=== PATIENT | female | born 1980 | race Caucasian/White ===

== ENCOUNTER 2017-08-28 11:50 | Inpatient (IN) ==
[2017-08-28] MEDS ORDERED: DEXTROSE 50% 25 GM/50 ML VIAL IV PRN ×2 (11:52→11:55)
[2017-08-28] MEDS ORDERED: GLUCAGON 1 MG VIAL IM PRN ×2 (11:52→11:55)
[2017-08-28 13:29] LABS: Basophils % 0.1 % (0.0-0.8); Eosinophils % 0.1 % (0.00-10.9); Hematocrit 37.6 VOL% (35.7-47.0); Hemoglobin 12.2 GM/DL (12.0-16.0); Immature Granulocytes % 0.5 %; Immature Granulocytes Absolute 0.08 #; Lymphocytes # 1.7 10*3/uL (1.4-4.0); Lymphocytes % 10.5 % (21.3-54.2); Mean Corpuscular HGB Conc 32.4 GM/DL (32-36); Mean Corpuscular Hemoglobin 28 PG (27-34); Mean Platelet Volume 9.8 FL (9.6-12.0); Monocytes % 6.6 % (1.7-12.7); Neutrophils % 82.2 % (38.7-73.9); Platelet Count 334 T/CUMM (130-400); Red Blood Count 4.32 MC/CUMM (3.8-5.5); Red Cell Distribution Width 14.1 % (9.3-17.3); White Blood Count 15.8 T/CUMM (4-12)
[2017-08-28] MEDS: ONDANSETRON 4 MG/2 ML VIAL IV PRN ×2 (13:36→19:35)
[2017-08-28] MEDS: MORPHINE 2 MG/1 ML SYRINGE IV PRN ×3 (13:36→23:16)
[2017-08-28 14:03] LABS: Albumin 3.6 G/DL (3.4-5.0); Bilirubin,Total 0.7 MG/DL (0.2-1.0); Calcium 9.2 MG/DL (8.5-10.1); Osmolality,Calculated 278.4 MOS/KG (273-304); Total Protein 7.5 G/DL (6.4-8.3)
[2017-08-28 15:11] LABS: Apearance,Urine CLEAR (Clear); Bilirubin,Urine Negative (Negative); Blood, Urine Small mg/dL (Negative); Glucose,Urine (UA) >=500 mg/dL (Negative); Ketones,Urine 80 mg/dL (Negative); Mucus,Urine Occasional /LPF (Occasional); Nitrite,Urine Negative (Negative); Protein,Urine Negative; RBC,Urine <1 /HPF (0-4); Squamous Epithelial Cell,Urine Occasional /HPF (0-10); Urine Color Yellow (Yellow); Urine Specific Gravity 1.031 (1.001-1.035); Urine Urobilinogen < 2.0 EU/DL (0.2-1.0); WBC,Urine 10 /HPF (0-6)
[2017-08-28] MEDS: INSULIN LISPRO 100 UNIT/ML SUBCUT SCH ×3 (16:05→21:50)
[2017-08-28] MEDS: SODIUM CHLORIDE 0.9% 1,000 ML IV SCH ×3 (16:07→21:54)
[2017-08-28] MEDS: CEFTAROLINE 600 MG in SODIUM CHLORIDE 0.9% 50 ML IV SCH (18:30)
[2017-08-28] MEDS: DOCUSATE SODIUM 100 MG CAPSULE PO SCH (21:49)
[2017-08-29] MEDS: INSULIN LISPRO 100 UNIT/ML SUBCUT SCH ×6 (01:14→22:19)
[2017-08-29] MEDS: CEFTAROLINE 600 MG in SODIUM CHLORIDE 0.9% 50 ML IV SCH ×2 (01:14→15:14)
[2017-08-29] MEDS: SODIUM CHLORIDE 0.9% 1,000 ML IV SCH ×5 (02:29→20:24)
[2017-08-29 03:45] LABS: Basophils % 0.1 % (0.0-0.8); Eosinophils # 0.1 10*3/uL (0.0-0.87); Eosinophils % 0.8 % (0.00-10.9); Hematocrit 29.6 VOL% (35.7-47.0); Hemoglobin 9.8 GM/DL (12.0-16.0); Immature Granulocytes % 0.4 %; Immature Granulocytes Absolute 0.06 #; Lymphocytes # 2.4 10*3/uL (1.4-4.0); Lymphocytes % 17.4 % (21.3-54.2); Mean Corpuscular HGB Conc 33.1 GM/DL (32-36); Mean Corpuscular Hemoglobin 28 PG (27-34); Mean Corpuscular Volume 85.1 FL (87-102); Monocytes # 0.8 10*3/uL (0.11-0.8); Neutrophils # 10.4 10*3/uL (1.4-7.4); Neutrophils % 75.3 % (38.7-73.9); Platelet Count 272 T/CUMM (130-400); Red Blood Count 3.48 MC/CUMM (3.8-5.5); Red Cell Distribution Width 14.2 % (9.3-17.3); White Blood Count 13.8 T/CUMM (4-12)
[2017-08-29 04:26] LABS: Osmolality,Calculated 273.1 MOS/KG (273-304); Potassium 3.9 MMOL/L (3.5-5.1)
[2017-08-29] MEDS: MORPHINE 2 MG/1 ML SYRINGE IV PRN (05:59)
[2017-08-29] MEDS: ONDANSETRON 4 MG/2 ML VIAL IV PRN (06:03)
[2017-08-29] MEDS ORDERED: ZALEPLON 5 MG CAPSULE PO PRN (09:10)
[2017-08-29] MEDS ORDERED: ONDANSETRON 4 MG TABLET PO PRN (09:40)
[2017-08-29] MEDS: DOCUSATE SODIUM 100 MG CAPSULE PO SCH ×2 (09:59→22:10)
[2017-08-29] MEDS: PANTOPRAZOLE 40 MG TABLET PO SCH (09:59)
[2017-08-29] MEDS: BENZONATATE 100 MG CAPSULE PO SCH ×2 (15:11→22:10)
[2017-08-29] MEDS: SERTRALINE 50 MG TABLET PO SCH (22:10)
[2017-08-29] MEDS: CETIRIZINE 10 MG TABLET PO SCH (22:11)
[2017-08-29] MEDS: INSULIN GLARGINE 100 UNIT/ML SUBCUT SCH (22:20)
[2017-08-30] MEDS: CEFTAROLINE 600 MG in SODIUM CHLORIDE 0.9% 50 ML IV SCH ×2 (02:17→15:33)
[2017-08-30] MEDS: INSULIN LISPRO 100 UNIT/ML SUBCUT SCH ×6 (02:20→23:08)
[2017-08-30] MEDS: SODIUM CHLORIDE 0.9% 1,000 ML IV SCH ×3 (02:21→19:37)
[2017-08-30 05:02] LABS: Basophils % 0.2 % (0.0-0.8); Eosinophils # 0.3 10*3/uL (0.0-0.87); Eosinophils % 3.2 % (0.00-10.9); Hematocrit 31.3 VOL% (35.7-47.0); Hemoglobin 10.2 GM/DL (12.0-16.0); Immature Granulocytes % 0.3 %; Immature Granulocytes Absolute 0.03 #; Lymphocytes # 2.1 10*3/uL (1.4-4.0); Lymphocytes % 20.4 % (21.3-54.2); Mean Corpuscular HGB Conc 32.6 GM/DL (32-36); Mean Corpuscular Hemoglobin 28 PG (27-34); Mean Corpuscular Volume 85.8 FL (87-102); Mean Platelet Volume 10.2 FL (9.6-12.0); Monocytes # 0.7 10*3/uL (0.11-0.8); Monocytes % 6.4 % (1.7-12.7); Neutrophils # 7.2 10*3/uL (1.4-7.4); Neutrophils % 69.5 % (38.7-73.9); Platelet Count 282 T/CUMM (130-400); Red Blood Count 3.65 MC/CUMM (3.8-5.5); Red Cell Distribution Width 14.4 % (9.3-17.3); White Blood Count 10.4 T/CUMM (4-12)
[2017-08-30 05:39] LABS: Calcium 8.2 MG/DL (8.5-10.1); Osmolality,Calculated 279.4 MOS/KG (273-304); Potassium 3.8 MMOL/L (3.5-5.1)
[2017-08-30] MEDS: DOCUSATE SODIUM 100 MG CAPSULE PO SCH ×2 (09:49→20:12)
[2017-08-30] MEDS: PANTOPRAZOLE 40 MG TABLET PO SCH (09:49)
[2017-08-30] MEDS: BENZONATATE 100 MG CAPSULE PO SCH ×3 (09:49→20:12)
[2017-08-30] MEDS ORDERED: BUPIVACAINE 0.25% 50 ML VIAL ONE (12:02)
[2017-08-30] MEDS ORDERED: LIDOCAINE 1%/EPI INJ 20 ML VIAL ONE (12:02)
[2017-08-30] MEDS: MORPHINE 2 MG/1 ML SYRINGE IV PRN (13:41)
[2017-08-30] MEDS ORDERED: DEXTROSE 50% 25 GM/50 ML VIAL IV PRN (14:44)
[2017-08-30] MEDS ORDERED: GLUCAGON 1 MG VIAL IM PRN (14:44)
[2017-08-30] MEDS: FLUTICASONE 50 MCG NASAL SPRAY 16 GM BOTTLE BOTH NARES SCH (15:32)
[2017-08-30] MEDS: CETIRIZINE 10 MG TABLET PO SCH (20:12)
[2017-08-30] MEDS: INSULIN GLARGINE 100 UNIT/ML SUBCUT SCH (20:12)
[2017-08-30] MEDS: SERTRALINE 50 MG TABLET PO SCH (20:12)
[2017-08-31] MEDS: INSULIN LISPRO 100 UNIT/ML SUBCUT SCH ×6 (01:04→21:34)
[2017-08-31] MEDS: SODIUM CHLORIDE 0.9% 1,000 ML IV SCH ×4 (01:04→21:34)
[2017-08-31] MEDS: CEFTAROLINE 600 MG in SODIUM CHLORIDE 0.9% 50 ML IV SCH ×2 (01:04→14:21)
[2017-08-31] MEDS: PANTOPRAZOLE 40 MG TABLET PO SCH (08:52)
[2017-08-31] MEDS: DOCUSATE SODIUM 100 MG CAPSULE PO SCH ×2 (08:52→21:33)
[2017-08-31] MEDS: BENZONATATE 100 MG CAPSULE PO SCH ×3 (08:52→21:31)
[2017-08-31] MEDS: FLUTICASONE 50 MCG NASAL SPRAY 16 GM BOTTLE BOTH NARES SCH (08:53)
[2017-08-31] MEDS ORDERED: ALBUTEROL 0.63 MG/3 ML NEB RESP TX PRN ×2 (09:11→17:33)
[2017-08-31] MEDS: ALBUTEROL 0.63 MG/3 ML NEB RESP TX SCH (19:57)
[2017-08-31] MEDS: CETIRIZINE 10 MG TABLET PO SCH (21:31)
[2017-08-31] MEDS: SERTRALINE 50 MG TABLET PO SCH (21:33)
[2017-08-31] MEDS: INSULIN GLARGINE 100 UNIT/ML SUBCUT SCH (21:34)
[2017-09-01] MEDS: INSULIN LISPRO 100 UNIT/ML SUBCUT SCH ×6 (01:08→20:37)
[2017-09-01] MEDS: CEFTAROLINE 600 MG in SODIUM CHLORIDE 0.9% 50 ML IV SCH ×2 (01:57→14:41)
[2017-09-01] MEDS: SODIUM CHLORIDE 0.9% 1,000 ML IV SCH ×4 (01:59→21:40)
[2017-09-01] MEDS: ALBUTEROL 0.63 MG/3 ML NEB RESP TX SCH ×2 (07:57→19:21)
[2017-09-01] MEDS: FLUTICASONE 50 MCG NASAL SPRAY 16 GM BOTTLE BOTH NARES SCH (09:43)
[2017-09-01] MEDS: DOCUSATE SODIUM 100 MG CAPSULE PO SCH ×2 (09:44→20:36)
[2017-09-01] MEDS: BENZONATATE 100 MG CAPSULE PO SCH ×3 (09:44→20:37)
[2017-09-01] MEDS: PANTOPRAZOLE 40 MG TABLET PO SCH (09:44)
[2017-09-01] MEDS: ENOXAPARIN 40 MG/0.4 ML SYRINGE SUBCUT SCH (12:35)
[2017-09-01] MEDS: CETIRIZINE 10 MG TABLET PO SCH (20:37)
[2017-09-01] MEDS: SERTRALINE 50 MG TABLET PO SCH (20:37)
[2017-09-01] MEDS: INSULIN GLARGINE 100 UNIT/ML SUBCUT SCH (20:37)
[2017-09-02] MEDS: CEFTAROLINE 600 MG in SODIUM CHLORIDE 0.9% 50 ML IV SCH ×2 (02:22→14:45)
[2017-09-02] MEDS: SODIUM CHLORIDE 0.9% 1,000 ML IV SCH ×3 (04:56→19:29)
[2017-09-02] MEDS: ONDANSETRON 4 MG/2 ML VIAL IV PRN ×2 (04:56→16:38)
[2017-09-02 06:52] LABS: Basophils % 0.6 % (0.0-0.8); Calcium 8.1 MG/DL (8.5-10.1); Eosinophils # 0.4 10*3/uL (0.0-0.87); Eosinophils % 5.8 % (0.00-10.9); Hematocrit 30.9 VOL% (35.7-47.0); Hemoglobin 10.4 GM/DL (12.0-16.0); Immature Granulocytes % 0.9 %; Immature Granulocytes Absolute 0.06 #; Lymphocytes # 1.4 10*3/uL (1.4-4.0); Lymphocytes % 21.3 % (21.3-54.2); Mean Corpuscular HGB Conc 33.7 GM/DL (32-36); Mean Corpuscular Hemoglobin 29 PG (27-34); Mean Corpuscular Volume 84.7 FL (87-102); Monocytes # 0.5 10*3/uL (0.11-0.8); Monocytes % 8.1 % (1.7-12.7); NRBC # 0.03 10*3/uL; Neutrophils # 4.2 10*3/uL (1.4-7.4); Neutrophils % 63.3 % (38.7-73.9); Osmolality,Calculated 277.8 MOS/KG (273-304); Platelet Count 298 T/CUMM (130-400); Potassium 4.3 MMOL/L (3.5-5.1); Red Blood Count 3.65 MC/CUMM (3.8-5.5); Red Cell Distribution Width 14.6 % (9.3-17.3); White Blood Count 6.6 T/CUMM (4-12)
[2017-09-02 07:42] LABS: Hypochromasia 1+
[2017-09-02] MEDS: ALBUTEROL 0.63 MG/3 ML NEB RESP TX SCH ×2 (08:02→20:06)
[2017-09-02] MEDS ORDERED: MIDAZOLAM 2 MG/2 ML VIAL ONE (08:06)
[2017-09-02] MEDS ORDERED: METOCLOPRAMIDE 10 MG/2 ML VIAL ONE (08:06)
[2017-09-02] MEDS ORDERED: PROPOFOL 200 MG/20 ML VIAL IV ONE (08:06)
[2017-09-02] MEDS ORDERED: ONDANSETRON 4 MG/2 ML VIAL ONE ×2 (08:06→08:08)
[2017-09-02] MEDS ORDERED: fentaNYL 100 MCG/2 ML VIAL ONE (08:06)
[2017-09-02] MEDS ORDERED: HYDROmorphone 2 MG/1 ML VIAL IV PRN (08:07)
[2017-09-02] MEDS ORDERED: ONDANSETRON 4 MG/2 ML VIAL IV PRN (08:07)
[2017-09-02] MEDS ORDERED: HYDROmorphone 2 MG/1 ML VIAL ONE (08:08)
[2017-09-02] MEDS: INSULIN LISPRO 100 UNIT/ML SUBCUT SCH ×4 (09:19→21:05)
[2017-09-02] MEDS: DOCUSATE SODIUM 100 MG CAPSULE PO SCH ×2 (09:21→21:05)
[2017-09-02] MEDS: BENZONATATE 100 MG CAPSULE PO SCH ×3 (09:21→20:45)
[2017-09-02] MEDS: PANTOPRAZOLE 40 MG TABLET PO SCH (09:22)
[2017-09-02] MEDS: FLUTICASONE 50 MCG NASAL SPRAY 16 GM BOTTLE BOTH NARES SCH (09:23)
[2017-09-02] MEDS: ENOXAPARIN 40 MG/0.4 ML SYRINGE SUBCUT SCH (12:12)
[2017-09-02] MEDS: INSULIN GLARGINE 100 UNIT/ML SUBCUT SCH (21:05)
[2017-09-02] MEDS: SERTRALINE 50 MG TABLET PO SCH (21:05)
[2017-09-02] MEDS: CETIRIZINE 10 MG TABLET PO SCH (21:05)
[2017-09-03] MEDS: SODIUM CHLORIDE 0.9% 1,000 ML IV SCH ×3 (00:45→19:58)
[2017-09-03] MEDS: ACETAMINOPHEN 325 MG TABLET PO PRN ×2 (02:07→08:41)
[2017-09-03] MEDS: CEFTAROLINE 600 MG in SODIUM CHLORIDE 0.9% 50 ML IV SCH ×2 (02:07→13:18)
[2017-09-03] MEDS: ONDANSETRON 4 MG/2 ML VIAL IV PRN ×3 (07:25→20:51)
[2017-09-03] MEDS: ALBUTEROL 0.63 MG/3 ML NEB RESP TX SCH ×2 (07:51→19:50)
[2017-09-03] MEDS: BENZONATATE 100 MG CAPSULE PO SCH ×3 (08:37→20:51)
[2017-09-03] MEDS: DOCUSATE SODIUM 100 MG CAPSULE PO SCH ×2 (08:37→20:51)
[2017-09-03] MEDS: FLUTICASONE 50 MCG NASAL SPRAY 16 GM BOTTLE BOTH NARES SCH (08:37)
[2017-09-03] MEDS: PANTOPRAZOLE 40 MG TABLET PO SCH (08:37)
[2017-09-03] MEDS: INSULIN LISPRO 100 UNIT/ML SUBCUT SCH ×4 (08:38→20:42)
[2017-09-03] MEDS: MORPHINE 2 MG/1 ML SYRINGE IV PRN (11:17)
[2017-09-03] MEDS: ENOXAPARIN 40 MG/0.4 ML SYRINGE SUBCUT SCH (11:19)
[2017-09-03] MEDS: SULFAMETHOX/TRIMETHOPRIM 800-160 MG TABLET PO SCH ×2 (11:20→20:51)
[2017-09-03] MEDS: INSULIN GLARGINE 100 UNIT/ML SUBCUT SCH (20:51)
[2017-09-03] MEDS: CETIRIZINE 10 MG TABLET PO SCH (20:51)
[2017-09-03] MEDS: SERTRALINE 50 MG TABLET PO SCH (20:51)
[2017-09-04] MEDS: CEFTAROLINE 600 MG in SODIUM CHLORIDE 0.9% 50 ML IV SCH ×2 (02:11→13:18)
[2017-09-04] MEDS: SODIUM CHLORIDE 0.9% 1,000 ML IV SCH ×2 (02:59→11:49)
[2017-09-04 06:33] LABS: Basophils % 0.4 % (0.0-0.8); Eosinophils # 0.4 10*3/uL (0.0-0.87); Eosinophils % 5.1 % (0.00-10.9); Hematocrit 30.9 VOL% (35.7-47.0); Hemoglobin 10.3 GM/DL (12.0-16.0); Immature Granulocytes % 0.9 %; Immature Granulocytes Absolute 0.07 #; Lymphocytes # 1.2 10*3/uL (1.4-4.0); Lymphocytes % 15.5 % (21.3-54.2); Mean Corpuscular HGB Conc 33.3 GM/DL (32-36); Mean Corpuscular Hemoglobin 28 PG (27-34); Mean Platelet Volume 9.9 FL (9.6-12.0); Monocytes # 0.9 10*3/uL (0.11-0.8); Monocytes % 11.3 % (1.7-12.7); Neutrophils # 5.2 10*3/uL (1.4-7.4); Neutrophils % 66.8 % (38.7-73.9); Platelet Count 358 T/CUMM (130-400); Red Blood Count 3.68 MC/CUMM (3.8-5.5); Red Cell Distribution Width 14.1 % (9.3-17.3); White Blood Count 7.8 T/CUMM (4-12)
[2017-09-04 06:56] LABS: Osmolality,Calculated 276.8 MOS/KG (273-304)
[2017-09-04] MEDS: ALBUTEROL 0.63 MG/3 ML NEB RESP TX SCH (07:16)
[2017-09-04] MEDS: ONDANSETRON 4 MG/2 ML VIAL IV PRN (07:17)
[2017-09-04] MEDS: INSULIN LISPRO 100 UNIT/ML SUBCUT SCH ×2 (08:38→11:42)
[2017-09-04] MEDS ORDERED: traMADol 50 MG TABLET PO PRN (08:41)
[2017-09-04] MEDS ORDERED: NYSTATIN 500,000 UNIT/5 ML UDCUP SWISH/SWAL SCH (09:00)
[2017-09-04] MEDS: FLUTICASONE 50 MCG NASAL SPRAY 16 GM BOTTLE BOTH NARES SCH (09:07)
[2017-09-04] MEDS: PANTOPRAZOLE 40 MG TABLET PO SCH (09:08)
[2017-09-04] MEDS: DOCUSATE SODIUM 100 MG CAPSULE PO SCH (09:08)
[2017-09-04] MEDS: BENZONATATE 100 MG CAPSULE PO SCH ×2 (09:08→16:14)
[2017-09-04] MEDS: SULFAMETHOX/TRIMETHOPRIM 800-160 MG TABLET PO SCH (09:08)
[2017-09-04] MEDS: NYSTATIN 500,000 UNIT/5 ML UDCUP SWISH/SWAL SCH ×2 (09:12→13:17)
[2017-09-04] MEDS: ENOXAPARIN 40 MG/0.4 ML SYRINGE SUBCUT SCH (11:50)
[2017-09-04 16:23] VITALS: BP 122/78
== END 2017-09-04 16:30 | disposition home or self-care (01) | DRG 603 ==
LOC: N.3E 12:21
PROVIDERS: ADMIT Internal Medicine; ATTEND Internal Medicine